=== PATIENT | male | born 1970 | race Caucasian/White ===

== ENCOUNTER 2016-11-25 10:14 | Observation (INO) | payer BC ==
[2016-11-24 11:35] LABS: BLOOD UREA NITROGEN 25 mg/dL (7-18)
[2016-11-24 11:39] LABS: ASPARTATE AMINO TRANSFERASE 23 U/L (15-37)
[~2016-11-25] VITALS: Ht 177.8 cm; Wt 96.0 kg
[~2016-11-25 10:14] MED LIST: GABA100C PO; HYDR-3138 PO
[2016-11-25] MEDS ORDERED: BUPIVACAINE/PF-EPI 0.5% 1:200K ONE ×2 (10:32→12:56)
[2016-11-25] MEDS ORDERED: NEOSPORIN OINT, 15GM ONE (10:32)
[2016-11-25] MEDS ORDERED: THROMBIN 5,000 UNIT VIAL TP ONE (10:32)
[2016-11-25] MEDS ORDERED: BACITRACIN 50,000 UNIT ONE (10:43)
[2016-11-25] MEDS ORDERED: LACTATED RINGERS 1,000 ML IV SCH (10:45)
[2016-11-25 10:49] VITALS: BP 125/89
[2016-11-25] MEDS ORDERED: FENTANYL PF 250 MCG/5ML ONE (11:55)
[2016-11-25] MEDS ORDERED: MIDAZOLAM 1 MG/ML, 2ML ONE (11:55)
[2016-11-25] MEDS ORDERED: SCOPOLAMINE PATCH, 1.5MG PATCH.TD72 TD ONE ×2 (12:22)
[2016-11-25] MEDS ORDERED: DEXAMETHASONE 4 MG/ML, 1ML ONE (12:23)
[2016-11-25] MEDS ORDERED: PROPOFOL 10 MG/ML, 20ML ONE (12:23)
[2016-11-25] MEDS ORDERED: ONDANSETRON 2MG/ML, 2ML ONE (12:23)
[2016-11-25] MEDS ORDERED: CEFAZOLIN 1,000 MG ONE (12:23)
[2016-11-25] MEDS ORDERED: METOCLOPRAMIDE 5 MG/ML, 2ML ONE (12:23)
[2016-11-25] MEDS ORDERED: KETOROLAC 30 MG/1 ML ONE ×2 (12:23→13:43)
[2016-11-25] MEDS ORDERED: SUCCINYLCHOLINE 20 MG/ML, 10ML ONE (12:23)
[2016-11-25] MEDS ORDERED: FENTANYL PF 100 MCG/2ML ONE (12:47)
[2016-11-25] MEDS ORDERED: HYDROmorphone 1 MG/ML, 1ML ONE (12:47)
[2016-11-25] MEDS ORDERED: MAGNESIUM HYDROXIDE 8%, 30ML UDC PO PRN (13:00)
[2016-11-25] MEDS ORDERED: CEFAZOLIN PMX 1GM/50ML 50 ML IVPB SCH (13:00)
[2016-11-25] MEDS ORDERED: METHOCARBAMOL 750 MG TABLET PO PRN (13:00)
[2016-11-25] MEDS ORDERED: D5%-0.9% NACL+KCL 20MEQ 1,000 ML IV SCH (13:00)
[2016-11-25] MEDS ORDERED: DIPHENHYDRAMINE 50 MG/ML, 1ML IVPush PRN (13:00)
[2016-11-25] MEDS ORDERED: SENNA/DOCUSATE TABLET PO PRN (13:00)
[2016-11-25] MEDS ORDERED: PHARMACY MAY ADJ FOR RENAL FX MC PRN (13:00)
[2016-11-25] MEDS ORDERED: BISACODYL 10 MG SUPP PR PRN (13:00)
[2016-11-25] MEDS ORDERED: ONDANSETRON 2MG/ML, 2ML IVPush PRN ×2 (13:00→13:30)
[2016-11-25] MEDS ORDERED: OXYcodone/APAP 5/325MG TABLET PO PRN (13:00)
[2016-11-25] MEDS ORDERED: morphine SULFATE 10 MG/ML, 1ML IVPush PRN (13:00)
[2016-11-25] MEDS ORDERED: OXYcodone 5 MG/5 ML ORAL.SOL UDC PO PRN (13:30)
[2016-11-25] MEDS ORDERED: ACETAMINOPHEN 325 MG TABLET PO PRN (13:30)
[2016-11-25] MEDS ORDERED: FENTANYL PF 100 MCG/2ML IV PRN (13:30)
[2016-11-25] MEDS ORDERED: MEPERIDINE/PF 25MG/0.5ML IVPush PRN (13:30)
[2016-11-25] MEDS ORDERED: hydrALAzine 20 MG/ML, 1ML IV PRN (13:30)
[2016-11-25] MEDS ORDERED: LABETALOL 5MG/ML, 20ML IV PRN (13:30)
[2016-11-25] MEDS ORDERED: MIDAZOLAM 1 MG/ML, 2ML IV PRN (13:30)
[2016-11-25] MEDS ORDERED: HYDROmorphone 1 MG/ML, 1ML IV PRN (13:30)
[2016-11-25] MEDS ORDERED: PROMETHAZINE 25 MG/ML, 1ML IV PRN (13:30)
[2016-11-25] MEDS ORDERED: ALBUTEROL/IPRATROPIUM 2.5MG/0.5MG, 3 ML NPPB PRN (13:30)
[2016-11-25] MEDS ORDERED: ACETAMINOPHEN 650 MG/20.3 ML UDC ONE (13:55)
[2016-11-25] MEDS ORDERED: OXYcodone 5 MG/5 ML ORAL.SOL UDC ONE (13:55)
[2016-11-25] MEDS ORDERED: GABAPENTIN 100 MG CAPSULE PO SCH (16:00)
== END 2016-11-25 16:45 | disposition home or self-care (01) ==
LOC: OUT 10:14 → ORIP 12:32
PROVIDERS: ADMIT Orthopaedic Surgery Orthopaedic Surgery of the Spine; ATTEND Orthopaedic Surgery Orthopaedic Surgery of the Spine
DX: M51.16 Intervertebral disc disorders with radiculopathy, lumbar region (principal); M48.06 Spinal stenosis, lumbar region
CPT/HCPCS: 36415; 63030; 71020; 72100; 80053; 81003; 85025; 93005; G0378; J0330; J0690; J1100; J1170; J1885; J2250; J2405; J2704; J2765; J3010; J7120

== ENCOUNTER → 2017-04-23 | Outpatient (CLI) | payer BC ==
[~2017-04-23] MED LIST changes: -HYDR-3138 PO; +HYDR-3237 PO; +SIMPLY SLEEP PO; +simply sleep PO
[2017-04-23 16:49] LABS: HEMATOCRIT 48.4 % (39.2-51.8); HEMOGLOBIN 16.6 g/dL (13.7-18.0); WHITE BLOOD COUNT 7.6 x10^3/uL (3.4-10)
[2017-04-23 17:00] LABS: BLOOD UREA NITROGEN 15 mg/dL (7-18)
== END | disposition home or self-care (01) ==
LOC: STAR 16:02
PROVIDERS: ATTEND Orthopaedic Surgery Orthopaedic Surgery of the Spine
DX: Z01.818 Encounter for other preprocedural examination (principal)
CPT/HCPCS: 36415; 71020; 80048; 81003; 85025; 93005

== ENCOUNTER 2017-05-01 05:42 | Inpatient (IN) | payer BC ==
[~2017-05-01] VITALS: Ht 177.8 cm; Wt 107.8 kg
[2017-05-01 06:12] VITALS: BP 137/87
[2017-05-01] MEDS: LACTATED RINGERS 1,000 ML IV SCH ×2 (06:34→16:26)
[2017-05-01] MEDS ORDERED: VANCOMYCIN 1,000 MG ONE (06:47)
[2017-05-01] MEDS ORDERED: BUPIVACAINE/PF 0.5% ONE (06:47)
[2017-05-01] MEDS ORDERED: THROMBIN 5,000 UNIT VIAL TP ONE (06:47)
[2017-05-01] MEDS ORDERED: EPINEPHRINE 1 MG/ML, 1ML ONE (06:47)
[2017-05-01] MEDS ORDERED: TRANEXAMIC ACID 100 MG/ML, 10ML ONE (06:47)
[2017-05-01] MEDS ORDERED: BACITRACIN 50,000 UNIT ONE (06:47)
[2017-05-01] MEDS ORDERED: PROPOFOL 100 ML ONE (07:06)
[2017-05-01] MEDS ORDERED: MIDAZOLAM 1 MG/ML, 2ML ONE (07:06)
[2017-05-01] MEDS ORDERED: PROPOFOL 10 MG/ML, 20ML ONE (07:06)
[2017-05-01] MEDS ORDERED: FENTANYL PF 250 MCG/5ML ONE (07:06)
[2017-05-01] MEDS ORDERED: ROCURONIUM 10 MG/ML,10ML ONE (07:08)
[2017-05-01] MEDS ORDERED: SCOPOLAMINE 1MG PATCH TD ONE (07:15)
[2017-05-01] MEDS ORDERED: CEFAZOLIN 1,000 MG ONE ×2 (07:27)
[2017-05-01] MEDS ORDERED: DEXAMETHASONE 4 MG/ML, 1ML ONE ×2 (07:27)
[2017-05-01] MEDS ORDERED: ACETAMINOPHEN 325 MG TABLET PO PRN (08:00)
[2017-05-01] MEDS ORDERED: LABETALOL 5MG/ML, 20ML IV PRN (08:00)
[2017-05-01] MEDS ORDERED: OXYcodone 5 MG/5 ML ORAL.SOL UDC PO PRN (08:00)
[2017-05-01] MEDS ORDERED: hydrALAzine 20 MG/ML, 1ML IV PRN (08:00)
[2017-05-01] MEDS ORDERED: HYDROmorphone 1 MG/ML, 1ML IV PRN (08:00)
[2017-05-01] MEDS ORDERED: PROMETHAZINE 25 MG/ML, 1ML IV PRN (08:00)
[2017-05-01] MEDS ORDERED: ONDANSETRON 2MG/ML, 2ML IVPush PRN ×2 (08:00→09:30)
[2017-05-01] MEDS ORDERED: MEPERIDINE/PF 25MG/0.5ML IVPush PRN (08:00)
[2017-05-01] MEDS ORDERED: ONDANSETRON 2MG/ML, 2ML ONE ×2 (08:57)
[2017-05-01] MEDS ORDERED: MAGNESIUM HYDROXIDE 8%, 30ML UDC PO PRN (09:30)
[2017-05-01] MEDS ORDERED: morphine SULFATE 10 MG/ML, 1ML IVPush PRN (09:30)
[2017-05-01] MEDS ORDERED: DIPHENHYDRAMINE 50 MG CAPSULE PO PRN (09:30)
[2017-05-01] MEDS ORDERED: ZOLPIDEM 5MG TABLET PO PRN (09:30)
[2017-05-01] MEDS ORDERED: SENNA/DOCUSATE TABLET PO PRN (09:30)
[2017-05-01] MEDS ORDERED: HYDROcodone/APAP 5/325 TABLET PO PRN (09:30)
[2017-05-01] MEDS ORDERED: HYDROmorphone 1 MG/ML, 1ML IVPush PRN (09:30)
[2017-05-01] MEDS ORDERED: BISACODYL 10 MG SUPP PR PRN (09:30)
[2017-05-01] MEDS ORDERED: DIAZEPAM 5 MG/ML, 2ML IVPush PRN (09:30)
[2017-05-01] MEDS ORDERED: LABETALOL 5MG/ML, 20ML IVPush PRN (09:30)
[2017-05-01] MEDS ORDERED: PHARMACY MAY ADJ FOR RENAL FX MC PRN (09:30)
[2017-05-01] MEDS: LABETALOL 5MG/ML 40ML VIAL IVPush SCH ×2 (09:30→16:26)
[2017-05-01] MEDS ORDERED: ACETAMINOPHEN 650 MG/20.3 ML UDC ONE (09:41)
[2017-05-01] MEDS ORDERED: FENTANYL PF 100 MCG/2ML ONE (09:41)
[2017-05-01] MEDS: FENTANYL PF 100 MCG/2ML IV PRN ×2 (09:48→09:58)
[2017-05-01] MEDS: OXYcodone/APAP 5/325MG TABLET PO PRN ×3 (11:03→20:36)
[2017-05-01 14:00] VITALS: BP 120/68
[2017-05-01] MEDS: DIAZEPAM 2 MG TABLET PO PRN ×2 (15:10→21:16)
[2017-05-01 19:50] VITALS: BP 133/83
[2017-05-02] MEDS: LABETALOL 5MG/ML 40ML VIAL IVPush SCH ×2 (01:03→09:30)
[2017-05-02] MEDS: OXYcodone/APAP 5/325MG TABLET PO PRN ×2 (02:01→07:22)
[2017-05-02 02:05] VITALS: BP 114/70
[2017-05-02 07:11] VITALS: BP 112/67
[2017-05-02 09:34] VITALS: BP 121/79
[2017-05-03] MEDS ORDERED: METHOCARBAMOL 750 MG TABLET PO SCH (17:30)
== END 2017-05-02 10:00 | disposition home or self-care (01) | DRG 460 ==
LOC: ORIP 05:42 → 4NOR 10:30
PROVIDERS: ADMIT Orthopaedic Surgery Orthopaedic Surgery of the Spine; ATTEND Orthopaedic Surgery Orthopaedic Surgery of the Spine
PROC: 01NB0ZZ Release Lumbar Nerve, Open Approach (ICD-10-PCS; 2017-05-01)
PROC: 4A11X4G Monitoring of Peripheral Nervous Electrical Activity, Intraoperative, External Approach (ICD-10-PCS; 2017-05-01)
PROC: 0SG30A0 Fusion of Lumbosacral Joint with Interbody Fusion Device, Anterior Approach, Anterior Column, Open Approach (ICD-10-PCS; principal; 2017-05-01 07:30)
DX: M48.07 Spinal stenosis, lumbosacral region (principal); M47.897 Other spondylosis, lumbosacral region; M51.37 Other intervertebral disc degeneration, lumbosacral region; M51.27 Other intervertebral disc displacement, lumbosacral region
CPT/HCPCS: 72100; 74000; C1713; J0171; J0690; J1100; J2250; J2405; J2704; J3010; J3370; J3490; C1762; J7120